=== PATIENT | female | born 1985 | race Caucasian/White ===

== ENCOUNTER → 2018-04-06 | Outpatient (CLI) | payer OTHER ==
[~2018-04-06] MED LIST: CEPH500 PO; HUMULIN N; HYDACE10B PO; HYDACE5 PO; IBUP800; IBUP800 PO; INS50/50I; INSLI100I; INSN100I; INSULANI; LEVSOD100 PO; MULVITMINE; NAPR500 PO; PROACE100 PO; SULTRIDS PO; Sprintec1 EACH PO
== END ==
LOC: LAB SHORT 14:15 → LAB 14:15
DX: N39.0 Urinary tract infection, site not specified (principal)
CPT/HCPCS: 87077; 87086; 87186

== ENCOUNTER → 2018-12-27 | Outpatient (CLI) | payer BC | END | disposition home or self-care (01) | LOC: PLD 11:11 → LAB SHORT 11:11 | DX: L30.8 Other specified dermatitis (principal) | CPT/HCPCS: 88305; 88312 ==

== ENCOUNTER → 2019-03-01 | Outpatient (CLI) | payer BC | END | disposition home or self-care (01) | LOC: PLD 13:54 → LAB SHORT 13:54 | DX: D22.39 Melanocytic nevi of other parts of face (principal); L57.0 Actinic keratosis; L90.5 Scar conditions and fibrosis of skin | CPT/HCPCS: 88305 ==

== ENCOUNTER → 2020-07-11 | Outpatient (CLI) | payer BC ==
[2020-07-12 15:07] LABS: HPV 16 Negative (Negative); HPV 18 Negative (Negative); HPV OTHER HR TYPES Negative (Negative)
== END | disposition home or self-care (01) ==
LOC: LAB 10:30 → LAB SHORT 10:30
PROVIDERS: Obstetrics & Gynecology
DX: Z01.419 Encounter for gynecological examination (general) (routine) without abnormal findings (principal)
CPT/HCPCS: 87624; G0123

== ENCOUNTER → 2020-12-16 | Outpatient (CLI) | payer BC, SELFPAY | END | disposition home or self-care (01) | LOC: PLD 14:53 → LAB SHORT 14:53 | DX: D22.5 Melanocytic nevi of trunk (principal) | CPT/HCPCS: 88305 ==

== ENCOUNTER → 2020-12-16 | Outpatient (CLI) | payer BC, SELFPAY ==
[2020-12-17 09:43] LABS: Candida species (DNA Probe) Negative (NEGATIVE); G. vaginalis (DNA Probe) Negative (NEGATIVE); T. vaginalis (DNA Probe) Negative (NEGATIVE)
== END ==
LOC: LAB 06:00 → LAB SHORT 06:00
PROVIDERS: Physician Assistant
DX: N72 Inflammatory disease of cervix uteri (principal); N76.0 Acute vaginitis
CPT/HCPCS: 87086; 87480; 87510; 87660

== ENCOUNTER 2022-10-08 17:25 | Emergency (ER) | payer OTHER ==
[~2022-10-08] VITALS: Ht 167.6 cm; Wt 68.0 kg
[2022-10-08 18:50] LABS: BASOPHILS ABSOLUTE AUTO 0.01 K/mm3 (0.00-0.23); BASOPHILS PERCENT AUTO 0 % (0-2); EOSINOPHILS PERCENT AUTO 0 % (0-6); Hematocrit 43.3 % (33.0-51.0); Hemoglobin 15.3 g/dL (11.5-16.0); IMMATURE GRAN ABSOLUTE AUTO 0.03 K/mm3 (0.00-0.10); IMMATURE GRAN PERCENT AUTO 0 % (0-1); LYMPHOCYTES ABSOLUTE AUTO 0.89 K/mm3 (0.84-5.20); LYMPHOCYTES PERCENT AUTO 9 % (21-46); MONOCYTES ABSOLUTE AUTO 0.61 K/mm3 (0.16-1.47); MONOCYTES PERCENT AUTO 6 % (4-13); Mean Corpuscular HGB Conc 35.3 g/dL (31.5-36.5); Mean Corpuscular Volume 91 fL (80-100); Mean Platelet Volume 9.8 fL (9.1-12.4); NEUTROPHILS ABSOLUTE AUTO 7.93 K/mm3 (1.96-9.15); NEUTROPHILS PERCENT AUTO 84 % (41-73); Platelet Count 229 K/mm3 (150-400); RDW Coefficient Variation 11.6 % (11.7-14.2); RDW Standard Deviation 38.4 fL (35.1-46.3); Red Blood Cell Count 4.78 M/mm3 (3.80-5.20); White Blood Cell Count 9.47 K/mm3 (4.00-11.30)
[2022-10-08 19:11] LABS: Albumin, Blood 4.6 g/dL (3.4-5.0); Albumin/Globulin Ratio 1.1 (0.8-1.8); Bun/Creatinine Ratio 18.6 (12.0-20.0); Creatinine, Blood 0.75 mg/dL (0.40-1.00); Globulin, Blood 4.3 g/dL (2.2-4.0); Potassium, Blood 3.6 mmol/L (3.5-5.5); Total Protein, Blood 8.9 g/dL (6.4-8.2)
[2022-10-08 20:41] LABS: Base Excess Venous -4.4 mmol/L; Bicarbonate Venous 21.3 mmol/L (24.0-30.0); PCO2 Venous 26.8 mmHg (38-42); pH Blood Venous 7.47 (7.34-7.37)
[2022-10-08 21:51] LABS: Source, Urine Clean Catch
[2022-10-08 22:02] LABS: Bilirubin, Urine Neg (Neg); Blood, Urine Neg (Neg); Glucose Qualitative, Urine 4+ (Neg); Ketones, Urine 4+ (Neg); Leukocyte Esterase, Urine Neg (Neg); Nitrite, Urine Neg (Neg); Protein, Urine Neg (Neg); Specific Gravity, Urine 1.005 (1.003-1.022); Urobilinogen, Urine NORM (Normal)
[2022-10-08 23:08] LABS: Appearance, Urine Clear (Clear); Color, Urine Pale Yellow (P-Yellow)
== END 2022-10-09 00:12 | disposition home or self-care (01) ==
LOC: ER 17:25
PROVIDERS: Physician Assistant
DX: R10.84 Generalized abdominal pain (principal); R11.2 Nausea with vomiting, unspecified; E11.9 Type 2 diabetes mellitus without complications; E03.9 Hypothyroidism, unspecified; Z79.899 Other long term (current) drug therapy; Z79.4 Long term (current) use of insulin
CPT/HCPCS: 36415; 71046; 74177; 80053; 81003; 82803; 83690; 84703; 85025; 93005; 93010; 96361; 96374-59; 96375; 99284-25; J1790; J1885; J2270; J2405; J7030; J7120; Q9967

== ENCOUNTER → 2024-07-10 | Outpatient (CLI) | payer OTHER ==
[2024-07-17 08:50] LABS: HPV HIGH RISK BY TMA Not Detected; HPV SOURCE Cervical
== END ==
LOC: LAB SHORT 13:49 → LAB 13:49
PROVIDERS: Family Medicine
DX: Z01.419 Encounter for gynecological examination (general) (routine) without abnormal findings (principal)
CPT/HCPCS: 87624; G0123